=== PATIENT | female | born 1975 | race Caucasian/White ===

== ENCOUNTER 2017-02-08 18:47 | Emergency (ER) | payer SELFPAY ==
[~2017-02-08] VITALS: Ht 170.2 cm; Wt 83.9 kg
[2017-02-08] MEDS ORDERED: SODIUM CHLORIDE 0.9% 1,000 ML IV ONE (19:15)
[2017-02-08 19:20] LABS: Urine RBC None Seen /hpf (0 - 4)
[2017-02-08 19:24] LABS: Hematocrit 44.4 % (36.0-46.0); Hemoglobin 14.9 g/dL (12.2-16.2); Mean Corpuscular Hemoglobin 30.3 pg (28.0-32.0); Mean Corpuscular Hgb Conc. 33.4 g/dL (32.0-36.0); Mean Corpuscular Volume 90.6 fL (80.0-100.0); Mean Platelet Volume 6.4 fL (6.9-10.8); Platelet Count (auto) 304 10^3/uL (140-450); Red Cell Distribution Width 13.3 % (11.8-14.3); White Blood Cell 7.9 10^3/uL (4.4-10.8)
[2017-02-08 19:25] LABS: Metamyelocytes % 0; Myelocytes % 0; Promyelocytes % 0
[2017-02-08 19:37] LABS: Urine Bilirubin Negative (Negative); Urine Blood Negative /uL (Negative); Urine Color Colorless (Yellow); Urine Glucose Normal (Normal); Urine Ketone Negative (Negative); Urine Nitrite Negative (Negative); Urine Squamous Epithelial Cell FEW /hpf (<5); Urine Urobilinogen Normal (Negative); Urine pH 6.5 (5.0-8.0)
[2017-02-08 19:49] LABS: BUN/Creatinine Ratio 15.2; Bilirubin, Total 0.4 mg/dL (0.2-1.0); Calcium 8.4 mg/dL (8.5-10.1); Potassium 4.1 mmol/L (3.5-5.1); Total Protein 8.2 g/dL (6.4-8.2)
[2017-02-08 19:57] LABS: Acetaminophen < 2.0 ug/mL (10-30); Reactive Lymphocytes 9; Salicylate 2.9 mg/dL (2.8-20.0)
[2017-02-08 19:58] LABS: Hypersegmented Neutrophils Present; Platelet Estimate Adequate; Stomatocytes Few
[2017-02-08] MEDS ORDERED: diphenhdrAMINE HCL 50 MG/1 ML VL IV ONE (20:30)
[2017-02-08] MEDS ORDERED: LORazepam 2MG/ML-1ML VIAL IV ONE (20:30)
[2017-02-08] MEDS ORDERED: THIAMINE HCL 100 MG/ML 2ML VIAL IV ONE (22:45)
[2017-02-08 23:14] VITALS: BP 113/62
== END 2017-02-08 23:42 | disposition home or self-care (01) ==
LOC: ER 18:47
DX: F10.129 Alcohol abuse with intoxication, unspecified (principal); R45.851 Suicidal ideations
CPT/HCPCS: 36415; 80053; 80307; 80320; 80329; 81001; 84702; 85007; 85027; 96361; 96374; 96375; 99285; J1200; J2060; J3411